=== PATIENT | female | born 1990 | race Two or more races ===

== ENCOUNTER 2019-12-21 09:08 | Outpatient (CLI) | payer OTHER | END 2019-12-21 09:17 | disposition home or self-care (01) | LOC: RX STUDY 09:08 | PROVIDERS: ATTEND Obstetrics & Gynecology Reproductive Endocrinology | DX: N70.11 Chronic salpingitis (principal) ==

== ENCOUNTER 2023-03-20 11:36 | Outpatient (CLI) | payer BC | END 2023-03-20 12:32 | disposition home or self-care (01) | LOC: NST 11:36 | PROVIDERS: ATTEND Obstetrics & Gynecology Gynecology | DX: Z34.83 Encounter for supervision of other normal pregnancy, third trimester (principal) ==

== ENCOUNTER 2023-04-03 11:41 | Outpatient (CLI) | payer BC | END 2023-04-03 14:54 | disposition home or self-care (01) | LOC: EDBD 11:41 → NST 11:41 | PROVIDERS: ATTEND Obstetrics & Gynecology Gynecology | DX: Z34.83 Encounter for supervision of other normal pregnancy, third trimester (principal) ==

== ENCOUNTER 2023-04-05 10:42 | Inpatient (IN) | payer BC ==
[~2023-04-05] VITALS: Ht 152.4 cm; Wt 64.4 kg
[2023-04-06 16:21] LABS: PH,URINE 5.5 (5.0-8.0); URINE APPEARANCE Cloudy; URINE BILIRRUBIN Small (NEGATIVE); URINE BLOOD Trace; URINE COLOR Dark Yellow; URINE GLUCOSE Negative (NEGATIVE); URINE LEUKOCYTE Negative; URINE NITRATE Negative; URINE PROTEIN 30 (NEGATIVE)
[2023-04-06 16:24] LABS: URINE EPITHELIAL CELLS 57.6 uL (0.0-38.8); URINE RBC 11.4 uL (0.0-20.8); URINE WBC 28.5 uL (0.0-23.2)
[2023-04-06 16:28] LABS: HEMATOCRIT 38.1 % (36.0-45.00); HEMOGLOBIN 12.9 g/dL (12.0-15.00); MEAN CELL VOLUME 91.2 fL (80.00-100.00); MEAN CORPUSCULAR HEMOGLOBIN 30.9 pg (27.00-32.0); MEAN CORPUSCULAR HGB CONC 33.9 g/dl (32.0-36.0); PLATELET COUNT 196 K/uL (150-450); RED BLOOD COUNT 4.18 M/uL (4.00-6.00); RED CELL DISTRIBUTION WIDTH 14.2 % (11.5-14.5)
[2023-04-06 16:33] LABS: URINE CRYSTALS FEW /HPF
[2023-04-06 16:37] LABS: INR < 0.93; PARTIAL THROMBOPLASTIN TIME 24.7 SECONDS (22.0-34.0); PROTHROMBIN TIME 9.7 SECONDS (9.0-11.5)
[2023-04-06 16:41] LABS: ALBUMIN 3.4 gm/dL (3.4-5.0); BILIRUBIN TOTAL 0.48 mg/dL (0.3-1.2); CREATININE SERUM 0.94 mg/dL (0.55-1.02); GFR 68.16; GLOBULINA 3.7 G/DL (2.4-3.5); POTASSIUM 4.24 mEq/L (3.5-5.1); TOTAL PROTEIN 7.1 gm/dL (6.4-8.2)
[2023-04-06] MEDS ORDERED: PRENATAL + DHA1 EAC1 PO (16:43)
[2023-04-06] MEDS ORDERED: VALTREX1000 MG PO (16:43)
[2023-04-07 13:59] LABS: ABG pCO2 49.6 mmHg (35-45)
[2023-04-07 14:00] LABS: ABG PO2 22.6 mmHg (80-100); BICARBONATE 22.3 mmol/l (23-25); SaO2 29.2 %; Tco2 23.8 mmol/l; o2 21 %
== END 2023-04-09 13:10 | disposition home or self-care (01) | DRG 807 ==
LOC: OB/GYN 10:42 → EDBD 04-06 15:51 → LDR 04-06 15:51 → OB/GYN 04-07 13:59
PROVIDERS: Obstetrics & Gynecology; Obstetrics & Gynecology Maternal & Fetal Medicine; ADMIT Obstetrics & Gynecology; ATTEND Obstetrics & Gynecology
PROC: 4A1HXCZ Monitoring of Products of Conception, Cardiac Rate, External Approach (ICD-10-PCS; 2023-04-06)
PROC: 10E0XZZ Delivery of Products of Conception, External Approach (ICD-10-PCS; principal; 2023-04-07)
DX: O80 Encounter for full-term uncomplicated delivery (principal); Z37.0 Single live birth; Z3A.40 40 weeks gestation of pregnancy; Z20.822 Contact with and (suspected) exposure to COVID-19

== ENCOUNTER 2024-09-07 06:10 | Day surgery (SDC) | payer OTHER ==
[2024-08-30 11:05] LABS: HEMATOCRIT 43.3 % (34.1-44.9); HEMOGLOBIN 14.5 g/dL (11.2-15.7); LYMPH % 20.6 % (19.3-53.1); MEAN CORPUSCULAR HEMOGLOBIN 29.8 pg (25.6-32.2); MONO % 5.5 % (4.7-12.5); NEUT % 70.7 % (34.0-71.1); PLATELET COUNT 212 K/uL (163-369); RED BLOOD COUNT 4.86 M/uL (3.93-5.22); RED CELL DISTRIBUTION WIDTH 12.7 % (11.6-14.4)
[2024-08-30 11:06] LABS: BASO % 0.4 % (0.1-1.2); EOS # 0.03 (0.04-0.54); EOS % 2.5 % (0.7-7.0); LYMPH # 0.38 (1.18-3.74); MONO # 0.17 (0.24-0.82); NEUT # 1.42 (1.56-6.13)
[2024-08-30 11:12] LABS: INR 0.99; PARTIAL THROMBOPLASTIN TIME 27.9 SECONDS (22.0-34.0); PROTHROMBIN TIME 10.8 SECONDS (9.0-11.5)
[2024-08-30 11:56] LABS: ALBUMIN 4.1 gm/dL (3.4-5.0); BILIRUBIN TOTAL 0.88 mg/dL (0.3-1.2); CALCIUM 8.7 mg/dL (8.5-10.1); CREATININE SERUM 0.77 mg/dL (0.55-1.02); GFR 85.31; GLOBULINA 3.3 G/DL (2.4-3.5); POTASSIUM 4.08 mEq/L (3.5-5.1); TOTAL PROTEIN 7.4 gm/dL (6.4-8.2)
[~2024-09-07 06:10] MED LIST: PRENATAL + DHA1 EAC1 PO; VALTREX1000 MG PO
[2024-09-07] MEDS ORDERED: POVIDONE-IODINE 118 ML BOTT TOP ONE (07:03)
== END 2024-09-07 14:10 | disposition home or self-care (01) ==
LOC: CIR.AMB 06:10
PROVIDERS: ATTEND Obstetrics & Gynecology Maternal & Fetal Medicine
DX: N84.0 Polyp of corpus uteri (principal); N73.6 Female pelvic peritoneal adhesions (postinfective)